=== PATIENT | male | born 1970 | race African-American/Black ===

== ENCOUNTER 2017-07-25 19:03 | Emergency (ER) | payer OTHER ==
[2017-07-25 19:04] VITALS: BP 114/63; PULSE 79; RESP 16; TEMP 100.1; O2SAT 95
[2017-07-25] MEDS ORDERED: IBUPROFEN 800 MG TAB PO ONE (19:30)
--- NOTE | 2017-07-25 22:14 | PD ---
HPI Chief Complaint: Cold / Flu Symptoms Time Seen by Provider: 22:06 Travel History International Travel<30 days: No Contact w/Intl Traveler<30days: No Traveled to known affect area: No History of Present Illness HPI 47-year-old Afro-[place] male presents the emergency department with 2 day history of increasing body aches, chills, upper respiratory symptoms, headache, fever, chills, and clear mucus. Office worsen today. He denies nausea or vomiting. No appetite. Pain is generalized and about a 7 out of 10. Patient works as a schoolteacher, teaching sixth-grade math and science. The patient is a nonsmoker. Patient has no known drug allergies. [facility] Social History Alcohol Use: Yes Tobacco Use: No Substance Use: No Allergies-Medications (Allergen,Severity, Reaction): Coded Allergies: No Known Allergies (Unverified , 07/25/17) Reported Meds & Prescriptions Reported Meds & Active Scripts Active Tamiflu (Oseltamivir Phosphate) 75 Mg Cap 75 Mg PO BID 5 Days Review of Systems Except as stated in HPI: all other systems reviewed are Neg General / Constitutional: Positive: Fever, Chills Eyes: Positive: Redness, Tearing, No: Diploplia, Blurred Vision, Photophobia, Drainage, Foreign Body Sensation, Pain, Blind Spots, Visual changes, Blindness HENT: Positive: Headaches, Sore Throat, Rhinitis, Rhinorrhea, Congestion, No: Vertigo, Lightheadedness, Nosebleed, Neck Stiffness, Neck Pain, Dental Difficulties, Earache Cardiovascular: No: Chest Pain or Discomfort Respiratory: Positive: Cough, No: Shortness of Breath, Wheezing Gastrointestinal: Positive: Loss of Appetite, No: Nausea, Vomiting, Diarrhea, Abdominal Pain Genitourinary: No: Dysuria Musculoskeletal: No: Pain Skin: No Rash Neurologic: No: Weakness Psychiatric: No: Depression Endocrine: No: Polydipsia Hematologic/Lymphatic: No: Easy Bruising Physical Exam Narrative GENERAL: The patient appears ill but not septic. SKIN: Warm and dry. Normal color. Normal turgor. No rash. HEAD: Atraumatic. Normocephalic. EYES: Pupils equal and round. No scleral icterus. No injection or drainage. ENT: Moderate clear nasal discharge is noted. No nasal bleeding . Mucous membranes pink and moist. TMs are clear bilaterally. Posterior pharynx is unremarkable. Her weight is patent. NECK: Trachea midline. No JVD. Supple and nontender. CARDIOVASCULAR: Regular rate and rhythm. RESPIRATORY: No accessory muscle use. Clear to auscultation. Breath sounds equal bilaterally. GASTROINTESTINAL: Abdomen soft, non-tender, nondistended. Hepatic and splenic margins not palpable. MUSCULOSKELETAL: Extremities without clubbing, cyanosis, or edema. No obvious deformities. NEUROLOGICAL: Awake and alert. No obvious cranial nerve deficits. Motor grossly within normal limits. Five out of 5 muscle strength in the arms and legs. Normal speech. PSYCHIATRIC: Appropriate mood and affect; insight and judgment normal. Data Data Last Documented VS Vital Signs Date Time Temp Pulse Resp B/P (MAP) Pulse Ox O2 Delivery O2 Flow Rate FiO2 07/25/17 19:04 100.1 79 16 114/63 (80) 95 Room Air Orders Orders Influenzae A/B Antigen (07/25/17 19:29) Ibuprofen (Motrin) (07/25/17 19:30) MDM Medical Decision Making Medical Screen Exam Complete: Yes Emergency Medical Condition: Yes Differential Diagnosis FEVER. URI. Influflenza Narrative Course Rapid influenza is obtained. Patient is given ibuprofen by mouth. Patient is felt to have influenza. Patient was treated with Tamiflu 75 mg twice a day 5 days. Patient is to rest, push fluids, and take Tylenol or Motrin as needed. Patient is to remain out of work until fever free for 24 hours. Patient can return with worsening symptoms if necessary. Diagnosis Primary Impression: Influenza A Referrals: Primary Care Physician Patient Instructions: General Instructions, H1N1 Influenza (ED) Departure Forms: Work Release Special Instructions: Patient is felt to have influenza. He is to remain out of work until fever free for greater than 24 hours. Additional Instructions: Patient is felt to have influenza. Patient was treated with Tamiflu 75 mg twice a day 5 days. Patient is to rest, push fluids, and take Tylenol or Motrin as needed. Patient is to remain out of work until fever free for 24 hours. Patient can return with worsening symptoms if necessary. Med/Other Pt SpecificInfo: Prescription(s) given Scripts Oseltamivir (Tamiflu) 75 Mg Cap 75 MG PO BID for Mgmt Viral Infection for 5 Days, #10 CAP 0 Refills Prov: Geraldine Chou MD 07/25/17 Disposition: 01 DISCHARGE HOME Condition: Stable Andrei Triplett. PA Jul 25, 2017 22:14
[2017-07-25] MEDS ORDERED: OSEL75 PO (22:15)
== END 2017-07-25 22:42 | disposition home or self-care (01) ==
LOC: NEPK 19:03
DX: J10.89 Influenza due to other identified influenza virus with other manifestations (principal)
CPT/HCPCS: 87804; 99283